=== PATIENT | male | born 1995 | race African-American/Black ===

== ENCOUNTER 2017-07-17 13:39 | Emergency (ER) | payer MEDICAID, OTHER ==
[~2017-07-17] VITALS: Ht 180.3 cm; Wt 100.0 kg
[2017-07-17 13:40] VITALS: BP 131/58; PULSE 74; RESP 14; TEMP 98.4; O2SAT 97
--- NOTE | 2017-07-17 14:32 | PD ---
HPI Chief Complaint: Injury Time Seen by Provider: 14:31 Travel History International Travel<30 days: No Contact w/Intl Traveler<30days: No Traveled to known affect area: No History of Present Illness HPI 21-year-old male presents to emergency department with complaint of right lateral knee pain and swelling since last night after landing on it wrong during step practice. Denies paresthesias, loss of sensation, decreased range of motion, decreased strength to the affected knee. Denies fever, vomiting. Has used ice for symptom management. Has not taken any medications to alleviate his symptoms. Pain is decreased with flexion of the knee. Pain is increased with extension of the knee. Has been ambulatory on the affected extremity. No known allergies. Has no other medical complaints. Symptoms are mild in severity. No other modifying factors or associated signs and symptoms. [facility] Social History Alcohol Use: No Tobacco Use: No Allergies-Medications (Allergen,Severity, Reaction): Coded Allergies: No Known Allergies (Unverified , 07/17/17) Reported Meds & Prescriptions Reported Meds & Active Scripts Active Ibuprofen 800 Mg Tab 800 Mg PO Q6HR PRN Review of Systems Except as stated in HPI: all other systems reviewed are Neg Physical Exam Narrative GENERAL: Well-nourished, well-developed black male patient, in no acute distress ; afebrile, nontoxic-appearing SKIN: Warm and dry. HEAD: Atraumatic. Normocephalic. EYES: Pupils equal and round. No scleral icterus. No injection or drainage. ENT: Mucosa pink and moist. Airway patent. NECK: Trachea midline. CARDIOVASCULAR: Regular rate. RESPIRATORY: No accessory muscle use. GASTROINTESTINAL: Flat. MUSCULOSKELETAL: Right knee edematous, nonerythematous, and without ecchymosis; full range of motion and flexion to 90; point tenderness to the lateral aspect ; joint stable with negative drawer test; no obvious deformity. Right Lower extremity is supple and non-tense with 2+ pedal pulse and sensory intact and without erythema or edema. No cyanosis. No edema. No clubbing. NEUROLOGICAL: Awake and alert. Oriented 3. No obvious cranial nerve deficits. Motor grossly within normal limits. Normal speech. PSYCHIATRIC: Appropriate mood and affect; insight and judgment normal. Data Data Last Documented VS Vital Signs Date Time Temp Pulse Resp B/P (MAP) Pulse Ox O2 Delivery O2 Flow Rate FiO2 07/17/17 13:40 98.4 74 14 131/58 (82) 97 Orders Orders Knee, Complete (4vws) (07/17/17 ) Ibuprofen (Motrin) (07/17/17 14:45) Ice/Cold Pack (07/17/17 14:34) MDM Medical Decision Making Medical Screen Exam Complete: Yes Emergency Medical Condition: Yes Medical Record Reviewed: Yes Differential Diagnosis Knee strain, knee fracture, ligament tear, ACL tear, meniscal tear Narrative Course 21-year-old male with right knee injury. Ibuprofen administered in the ER. Ice pack applied. Right knee x-ray ordered in triage. 1521: Right knee x-ray concludes: Unremarkable examination of the right knee. X-ray results discussed with patient. Sinan bandage and crutches provider for support. Instructed patient to follow up with orthopedics. Ibuprofen prescribed for home. Instructed patient to follow up with primary care provider. Patient verbalizes understanding and agreement with treatment plan. Patient is medically cleared and stable for discharge. Discussed reasons to return to the emergency department. Patient agrees with treatment plan. The patients vital signs are stable and the patient is stable for outpatient follow- up and treatment. Patient discharged home, stable and in no acute distress. Diagnosis Primary Impression: Right knee injury Qualified Codes: S89.91XA - Unspecified injury of right lower leg, initial encounter Referrals: Orthopedist Primary Care Physician Patient Instructions: Crutch Instructions (ED), General Instructions, Knee Sprain (ED) Departure Forms: School Release, Please excuse from school until (free text option): Unable to perform physical activity until cleared by primary care provider or orthopedic Tests/Procedures Additional Instructions: Tylenol or ibuprofen as needed and as directed to reduce pain and inflammation Rest, ice, compress, and elevate extremity to decrease pain and inflammation Knee brace for support Crutches for support Avoid aggravating activity; increase activity as tolerated Follow-up with primary care provider Follow-up with orthopedics Return to the emergency department immediately with worsening symptoms Med/Other Pt SpecificInfo: Prescription(s) given Scripts Ibuprofen (Ibuprofen) 800 Mg Tab 800 MG PO Q6HR Y for PAIN, #30 TAB 0 Refills Prov: Kathy Salvador 07/17/17 Disposition: 01 DISCHARGE HOME Condition: Stable Kathy Salvador Jul 17, 2017 14:32
[2017-07-17] MEDS ORDERED: IBUPROFEN 800 MG TAB PO ONE (14:45)
[2017-07-17] MEDS ORDERED: IBUP800T23 PO (15:00)
--- NOTE | 2017-07-17 15:18 | RADRPT ---
EXAM DATE/TIME: 07/17/2017 15:09 [facility] COMPARISON: No previous studies available for comparison. INDICATIONS : Right anterior lateral knee pain, twisted MEDICAL HISTORY : None. SURGICAL HISTORY : None. ENCOUNTER: Initial ACUITY: 2 days PAIN SCORE: 6/10 LOCATION: Right Knee FINDINGS: Four view examination of the right knee demonstrates no evidence of fracture or dislocation. Bony mi neralization is normal. The articular surfaces are intact. The suprapatellar soft tissues have a no rmal configuration. CONCLUSION: Unremarkable examination of the right knee. Chauncey Gramajo MD on July 17, 2017 at 15:16 Board Certified Radiologist. This report was verified electronically.
== END 2017-07-17 15:28 | disposition home or self-care (01) ==
LOC: NEPK 13:39
DX: S89.91XA Unspecified injury of right lower leg, initial encounter (principal); X50.3XXA Overexertion from repetitive movements, initial encounter; Y93.41 Activity, dancing
CPT/HCPCS: 73564; 99283; E0113